=== PATIENT | male | born 1935 | race Native Hawaiian/Other Pacific Islander ===

== ENCOUNTER 2019-04-08 08:46 | Emergency (ER) | payer OTHER ==
[~2019-04-08] VITALS: Ht 180.3 cm; Wt 83.5 kg
[2019-04-08 09:26] LABS: PLATELET COUNT 255 K/uL (142-355)
[2019-04-08 10:58] VITALS: BP 140/70; TEMP 98.2
== END 2019-04-08 11:10 | disposition home or self-care (01) ==
LOC: EDSEX 08:46 → ED 08:46
PROVIDERS: Family Medicine
DX: R10.84 Generalized abdominal pain (principal); R11.0 Nausea
CPT/HCPCS: 80053; 82150; 83690; 85027; 96372; 99283; J0500